=== PATIENT | female | born 1995 | race American Indian/Alaskan Native ===

== ENCOUNTER 2019-04-18 16:04 | Emergency (ER) | payer SELFPAY ==
[2019-04-18 16:46] VITALS: BP 143/77
--- NOTE | 2019-04-18 16:48 | Emergency Department Report ---
Chief Complaint: Upper Respiratory Infection Stated Complaint: COLD/FLU LIKE SYM/LFT EYE INJURY Time Seen by Provider: 04/18/19 16:43 - HPI History of Present Illness: This is a 23-year-old female that presents to the ER with flu like symptoms. She reports cough, nauseous, body aches, and chills for 3 days. Patient took OTC cold and flu medication. Current marijuana and cigarette smoker. LMP 04/15/2019. - ROS Review of Systems: Constitutional: admits: chills, fever HEENT: admits: dental pain. Respiratory: admits: cough. denies: shortness of breath, wheezing Cardiovascular: denies: chest pain, palpitations Gastrointestinal: denies: abdominal pain, nausea, diarrhea Skin: denies: lesions and rash Neurological: denies: headache, weakness, paresthesias Psychiatric: denies: anxiety, depression - Exam Vital Signs: Vital Signs 04/18/19 16:45 Temperature 99.1 F Pulse Rate 95 H Respiratory 18 Rate Blood Pressure 143/77 O2 Sat by Pulse 98 Oximetry Physical Exam: General appearance: in no apparent distress, well in appearance HEENT: Turbinates mildly congested with clear discharge. Negative: Tonsillar Exudate, uvila midline, Pharangeal Exudate, Peritonsillar Swelling. Normal External Exam: Left, Right Neck exam: Present: normal inspection. Absent: tenderness, meningismus Respiratory exam: Present: normal lung sounds bilaterally. Absent: respiratory distress Cardiovascular Exam: Present: regular rate, normal rhythm. Absent: systolic murmur, diastolic murmur, rubs, gallop GI/Abdominal exam: Present: soft, normal bowel sounds. Absent: distended, tenderness, guarding, rebound Neurological exam: Present: alert, oriented X3, CN II-XII intact. Absent: motor sensory deficit Psychiatric exam: Absent: depressed, flat affect Skin exam: Present: warm, dry, intact, normal color. Absent: rash MSE screening note: Focused history and physical exam performed. Due to findings the following was ordered: ED Medical Decision Making - Medical Decision Making Patient is stable and was examined by me. Vitals normal and patient in no acute distress. PMH of asthma. Normal lung sounds bilaterally. Patient will be discharged with azithromycin, benzonatate, medrol pack, and albuterol inhaler for bronchtitis and URI. Patient was instructed to Follow-up with a primary care doctor in 3-5 days or if symptoms worsen and continue return to emergency room as soon as possible. At time of discharge, the patient does not seem toxic or ill in appearance. No acute signs of distress noted. Patient agrees to discharge treatment plan of care. No further questions noted by the patient. ED Disposition for MSE Clinical Impression: Cough in adult, Bronchitis Upper respiratory infection Qualifiers: URI type: acute nasopharyngitis (common cold) Qualified Code(s): J00 - Acute nasopharyngitis [common cold] Disposition: DC- TO HOME OR SELFCARE Is pt being admited?: No Does the pt Need Aspirin: No Condition: Stable Instructions: Upper Respiratory Infection (ED), Acute Bronchitis (ED) Prescriptions: methylPREDNISolone [Medrol 4MG DOSEPAK (21 tabs)] 4 mg PO DAILY #1 tab.ds.pk ALBUTEROL Inhaler (OR & NICU) [ProAir HFA Inhaler] 2 puff IH QID PRN #1 inhalation PRN Reason: Shortness Of Breath Benzonatate [Tessalon Perles] 100 mg PO Q8HR PRN #30 capsule PRN Reason: Cough Azithromycin [Zithromax Z-JOSEPH] 250 mg PO DAILY #6 tablet Referrals: [facility] [Outside] - 3-5 Days [facility] [Outside] - 3-5 Days [facility] [Outside] - 3-5 Days Forms: Work/School Release Form(ED) Time of Disposition: 17:31
== END 2019-04-18 18:01 | disposition home or self-care (01) ==
LOC: ED 16:04
DX: J40 Bronchitis, not specified as acute or chronic (principal); J00 Acute nasopharyngitis [common cold]; Z88.0 Allergy status to penicillin
CPT/HCPCS: 99282

== ENCOUNTER 2022-02-25 12:32 | Emergency (ER) | payer SELFPAY ==
[2022-02-25 14:04] VITALS: BP 140/59
== END 2022-02-25 20:13 | disposition left against medical advice (07) ==
LOC: ED 12:32
DX: M79.641 Pain in right hand (principal); Z53.21 Procedure and treatment not carried out due to patient leaving prior to being seen by health care provider